=== PATIENT | female | born 1945 | race Caucasian/White ===

== ENCOUNTER → 2019-10-14 | Outpatient (CLI) | payer OTHER | LOC: HYPER 12:28 | DX: L03.115 Cellulitis of right lower limb (principal); L03.116 Cellulitis of left lower limb; I87.2 Venous insufficiency (chronic) (peripheral); L30.9 Dermatitis, unspecified; R21 Rash and other nonspecific skin eruption; M35.3 Polymyalgia rheumatica; D72.1 Eosinophilia; R60.0 Localized edema; M79.662 Pain in left lower leg; M79.661 Pain in right lower leg; Z87.891 Personal history of nicotine dependence; Z90.710 Acquired absence of both cervix and uterus ==

== ENCOUNTER → 2019-10-28 | Outpatient (CLI) | payer OTHER | LOC: HYPER 13:52 | DX: L03.115 Cellulitis of right lower limb (principal); L03.116 Cellulitis of left lower limb; I87.2 Venous insufficiency (chronic) (peripheral); L30.9 Dermatitis, unspecified; R21 Rash and other nonspecific skin eruption; M35.3 Polymyalgia rheumatica; D72.1 Eosinophilia; R60.0 Localized edema; Z87.891 Personal history of nicotine dependence ==

== ENCOUNTER → 2019-11-02 | Outpatient (CLI) | payer OTHER | LOC: SJCVCIMAG 08:55 | DX: M79.661 Pain in right lower leg (principal); M79.662 Pain in left lower leg; M79.89 Other specified soft tissue disorders ==

== ENCOUNTER → 2019-11-04 | Outpatient (CLI) | payer OTHER | LOC: HYPER 13:18 | DX: L03.115 Cellulitis of right lower limb (principal); L03.116 Cellulitis of left lower limb; L30.9 Dermatitis, unspecified; D72.1 Eosinophilia; I87.2 Venous insufficiency (chronic) (peripheral); R21 Rash and other nonspecific skin eruption; R60.0 Localized edema; M35.3 Polymyalgia rheumatica; Z87.891 Personal history of nicotine dependence ==

== ENCOUNTER → 2019-11-11 | Outpatient (CLI) | payer OTHER | LOC: HYPER 13:54 | DX: L03.115 Cellulitis of right lower limb (principal); L03.116 Cellulitis of left lower limb; I87.2 Venous insufficiency (chronic) (peripheral); L30.9 Dermatitis, unspecified; R21 Rash and other nonspecific skin eruption; M35.3 Polymyalgia rheumatica; D72.1 Eosinophilia; R60.0 Localized edema; Z87.891 Personal history of nicotine dependence ==